=== PATIENT | male | born 1950 | race Caucasian/White ===

== ENCOUNTER 2017-01-20 22:45 | Emergency (ER) | payer MEDICARE ==
[2017-01-21] MEDS ORDERED: LIDOCAINE 1% INJ-PF (10 MG/ML) 30 ML SDV INJ ONE (00:07)
--- NOTE | 2017-01-21 00:07 | ER Document Report ---
ED Wound - General Mode of Arrival: Ambulatory Information source: Patient TRAVEL OUTSIDE OF THE [place] IN LAST 30 DAYS: No - HPI Patient complains to provider of: Laceration Occurred: This evening Onset/Duration: Sudden Context: Injury Associated Symptoms: Other - see notes above - General Chief Complaint: L little toe injury Stated Complaint: TOE INJURY Time Seen by Provider: 01/20/17 23:56 Notes: 66-year-old male with history of diabetes, hypertension, hyperlipidemia, and on warfarin presents to the ED complaining of a wound to the left small toe that occurred just prior to arrival. Patient states that he was walking down stairs without shoes when he misstepped and proceeded to injure his small left toe. Patient states that he had his INR checked 2 weeks ago which was a 2.1. (ANDERSON RUSH) - Related Data Allergies/Adverse Reactions: No Known Allergies Allergy (Unverified 01/21/17 02:40) Past Medical History - General Information source: Patient - Social History Smoking Status: Unknown if Ever Smoked Family History: Reviewed & Not Pertinent - Past Medical History Cardiac Medical History: Reports: Hx Hypercholesterolemia, Hx Hypertension Endocrine Medical History: Reports: Hx Diabetes Mellitus Type 2 Renal/ Medical History: Denies: Hx Peritoneal Dialysis Review of Systems - Review of Systems Constitutional: No symptoms reported EENT: No symptoms reported Cardiovascular: No symptoms reported Respiratory: No symptoms reported Gastrointestinal: No symptoms reported Genitourinary: No symptoms reported Male Genitourinary: No symptoms reported Musculoskeletal: See HPI, Other - wound to the left small toe Skin: No symptoms reported Hematologic/Lymphatic: No symptoms reported Neurological/Psychological: No symptoms reported -: Yes All other systems reviewed and negative Physical Exam - General General appearance: Alert In distress: None - HEENT Head: Normocephalic, Atraumatic Eyes: Normal Extraocular movements intact: Yes Pupils: PERRL - Respiratory Respiratory status: No respiratory distress Breath sounds: Normal - Cardiovascular Rhythm: Regular Heart sounds: Normal auscultation - Abdominal Inspection: Normal Distension: No distension Tenderness: Nontender - Back Back: Normal - Extremities General upper extremity: Normal inspection, Normal ROM General lower extremity: Normal ROM. No: Normal inspection - see foot exam Foot: Laceration - laceration at the base of the left 5th toe in a circular fashion approximately 2.0 cm.. No: Normal - Neurological Neuro grossly intact: Yes Cognition: Normal Orientation: AAOx4 Efra Coma Scale Eye Opening: Spontaneous Efra Coma Scale Verbal: Oriented Efra Coma Scale Motor: Obeys Commands Ashby Coma Scale Total: 15 Speech: Normal - Psychological Associated symptoms: Normal affect, Normal mood - Skin Skin Temperature: Warm Skin Moisture: Dry Skin Color: Normal Procedures - Laceration/Wound Repair Left Toe 5th digit Time completed: 01:05 Wound length (cm): 2 Wound's Depth, Shape: Linear Laceration pre-procedure: Sterile drapes applied Anesthetic type: 1% Lidocaine Wound Repaired With: Sutures Suture Size/Type: 4:0, Nylon Number of Sutures: 12 Post-procedure wound care: Other - post-op shoe Complications: No Discharge - Discharge Clinical Impression: open fracture with laceration phalanyx Condition: Stable Disposition: HOME, SELF-CARE Instructions: Laceration Care ([facility]), Oral Narcotic Medication ([facility]) Additional Instructions: Laceration Care Your laceration has been sutured to keep the skin edges aligned during healing. The time of suture removal depends on the nature and location of your cut. Please follow the care instructions the doctor has outlined for you and return for further care, according to the schedule you've been given. Keep the wound and dressing clean. Unless you were told otherwise, you may shower daily, blotting the wound dry with a clean, unused towel. At other times, If the dressing gets wet or blood soaked, remove it and blot the wound dry, then reapply a new dressing. Unless you were instructed otherwise, dressings should be changed at least daily. If any signs of infection occur (swelling, redness, increasing tenderness, red streaks, tender lumps in the armpit or groin above the laceration, or fever) , see the doctor immediately. Fractured Toe You have fractured your toe. Although this fracture doesn't need a cast or splint, emergency evaluation was needed to assess the straightness of the bones and joints. Reduction ("setting") is necessary for toe fractures which are crooked or twisted. A toe fracture will heal in about three weeks. Usually, the fractured toe is taped to the next toe. The second toe acts as a moving splint to protect the broken one. Ice and elevation help during the first 48 hours. You may need crutches at first if walking is painful. When you begin walking, be careful NOT to do things that hurt. If weight bearing is not comfortable within a few days, you may require a special shoe, walking boot, or cast. Call the doctor or return at once if severe swelling, severe pain, or numbness develop in the toe, or if you suspect you may have re-injured it. Because you are from out of town and here for an additional week want you to recheck in the emergency department in 2 days for the wound given the fact that your diabetic. And then when you go home he will have the stitches removed in 7 -10 days. Return for increased worsening or new symptoms. Prescriptions: Cephalexin Monohydrate [Keflex 500 mg Capsule] 500 mg PO QID #28 capsule Hydrocodone/Acetaminophen [Parnell 5-325 Tablet] 1 each PO TID #12 tablet Scribe Attestation: 01/21/17 01:35 I personally performed the services described in the documentation reviewed the documentation recorded by my scribe in my presence and it accurately and completely records my words and actions (MADHAV HAGEN) Scribe Documentation - Scribe Written by Beatriz:: Beatriz Szymanski, 01/21/2017 0056 acting as scribe for :: Jorje
--- NOTE | 2017-01-21 00:34 | RADIOLOGY REPORT (SQ) ---
EXAM DESCRIPTION: TOE LEFT COMPLETED DATE/TIME: 01/20/2017 11:47 pm REASON FOR STUDY: pain s/p injury COMPARISON: None. NUMBER OF VIEWS: Two views. TECHNIQUE: AP and lateral images acquired of the left fifth toe. LIMITATIONS: None. FINDINGS: MINERALIZATION: Normal. BONES: Complete transverse, curvilinear fracture of the left 5th proximal phalanx, at the proximal di aphysis, without significant displacement. Mild swelling. No evidence of significant healing. JOINTS: No effusions. SOFT TISSUES: As above. OTHER: No other significant finding. IMPRESSION: Fracture of the left 5th proximal phalanx. COMMENT: SITE OF TRAUMA/COMPLAINT MARKED/STAMP COMPLETED: YES. TECHNICAL DOCUMENTATION: JOB ID: [id number] [employer]- All Rights Reserved
[2017-01-21] MEDS ORDERED: CEPHALEXIN 500 MG CAPSULE PO ONE (00:46)
[2017-01-21] MEDS ORDERED: HYDROCODONE/ACETAMINOPHEN 5-325 MG TABLET PO ONE (00:47)
[2017-01-21] MEDS ORDERED: HYDROCODONE/ACETAMINOPHEN 5-325 MG 6 TAB/DSPK PO PRN (01:38)
[2017-01-21 02:42] VITALS: BP 165/104
== END 2017-01-21 02:25 | disposition home or self-care (01) ==
LOC: ER 22:45
PROC: 0HQNXZZ Repair Left Foot Skin, External Approach (ICD-10-PCS; principal; 2017-01-20)
DX: S92.512B Displaced fracture of proximal phalanx of left lesser toe(s), initial encounter for open fracture (principal); X58.XXXA Exposure to other specified factors, initial encounter; Y92.009 Unspecified place in unspecified non-institutional (private) residence as the place of occurrence of the external cause; I10 Essential (primary) hypertension; E11.9 Type 2 diabetes mellitus without complications
CPT/HCPCS: 12001; 99283; 73660; A9270 ×3

== ENCOUNTER 2017-01-23 07:57 | Emergency (ER) | payer MEDICARE ==
[2017-01-23 08:07] VITALS: BP 163/78
--- NOTE | 2017-01-23 08:39 | ER Document Report ---
ED General - General Information source: Patient TRAVEL OUTSIDE OF THE [place] IN LAST 30 DAYS: No - HPI Patient complains to provider of: Wound Recheck Onset: Other - Injury occurred 01/21/2017 Associated symptoms: None Recently seen / treated by doctor: Yes - 01/21/2017 - General Chief Complaint: Wound Recheck Stated Complaint: STITCH RECHECK Time Seen by Provider: 01/23/17 08:18 Notes: Patient is a 67-year-old male presenting to the emergency department for a wound recheck. Patient was seen here 2 days ago after he injured his left fifth toe walking down the stairs. Patient ended up with a transverse fracture to the proximal phalanx of the left 5th toe, and also had sutures placed. Patient states that it seems to be doing well, but he requests a larger boot. (CRISTHIAN GILMORE) - Related Data Allergies/Adverse Reactions: No Known Allergies Allergy (Verified 01/23/17 08:05) Past Medical History - General Information source: Patient, [facility] Records - Social History Smoking Status: Smoker,Current Status Unk Family History: Reviewed & Not Pertinent Patient has suicidal ideation: No Patient has homicidal ideation: No - Past Medical History Cardiac Medical History: Reports: Hx Atrial Fibrillation - coumadin, Hx Hypercholesterolemia, Hx Hypertension Endocrine Medical History: Reports: Hx Diabetes Mellitus Type 2 Traumatic Medical History: Reports: Hx Fractures - Transverse fracture of the left proximal phalanx of the fifth toe - Immunizations Hx Diphtheria, Pertussis, Tetanus Vaccination: Yes Review of Systems - Review of Systems Constitutional: No symptoms reported EENT: No symptoms reported Cardiovascular: No symptoms reported Respiratory: No symptoms reported Gastrointestinal: No symptoms reported Genitourinary: No symptoms reported Male Genitourinary: No symptoms reported Musculoskeletal: See HPI, Other - Fracture/wound recheck left 5th toe Skin: No symptoms reported Hematologic/Lymphatic: No symptoms reported Neurological/Psychological: No symptoms reported -: Yes All other systems reviewed and negative Physical Exam - Vital signs Interpretation: Normal - General General appearance: Appears well, Alert - HEENT Head: Normocephalic, Atraumatic Eyes: Normal Pupils: PERRL - Respiratory Respiratory status: No respiratory distress Chest status: Nontender - Cardiovascular Rhythm: Regular - Abdominal Inspection: Normal, Morbidly Obese Distension: No distension Bowel sounds: Normal Tenderness: Nontender Organomegaly: No organomegaly - Back Back: Normal, Nontender - Extremities General upper extremity: Normal inspection, Nontender Foot: Other - Wound with sutures between left 4th and 5th toes. It was dressed without any gauze between the toes, so skin is white with macerated appearance. Dorsal plantar and lateral aspect of the toe the skin appears normal. - Neurological Neuro grossly intact: Yes Cognition: Normal Orientation: AAOx4 Ettrick Coma Scale Eye Opening: Spontaneous Efra Coma Scale Verbal: Oriented Efra Coma Scale Motor: Obeys Commands Ettrick Coma Scale Total: 15 Speech: Normal Motor strength normal: LUE, RUE, LLE, RLE Sensory: Normal - Psychological Associated symptoms: Normal affect, Normal mood - Skin Skin Temperature: Warm Skin Moisture: Dry Skin Color: Other - See foot exam - Vital signs Vitals: Temp Pulse Resp BP Pulse Ox 97.8 F 94 20 163/78 H 96 01/23/17 08:06 01/23/17 08:06 01/23/17 08:06 01/23/17 08:06 01/23/17 08:06 Discharge - Discharge Clinical Impression: Visit for wound check Disposition: HOME, SELF-CARE Additional Instructions: Clean the wound and change the gauze between the toes at least twice daily. Elevate your foot and limit walking as much as possible. Continue taking the antibiotics. Follow-up with your doctor for suture removal when you return home. RETURN TO THE EMERGENCY ROOM IF ANY NEW OR WORSENING SYMPTOMS. Daveyibe Attestation: 01/23/17 08:47 I personally performed the services described in the documentation, reviewed and edited the documentation which was dictated to the scribe in my presence, and it accurately records my words and actions. (JELANI NICHOLE) Scribe Documentation - Scribe Written by Beatriz:: Beatriz Foster, 01/23/2017 0839 acting as scribe for :: Ab
== END 2017-01-23 08:50 | disposition home or self-care (01) ==
LOC: ER 07:57
DX: S92.512D Displaced fracture of proximal phalanx of left lesser toe(s), subsequent encounter for fracture with routine healing (principal); S91.302D Unspecified open wound, left foot, subsequent encounter; X58.XXXD Exposure to other specified factors, subsequent encounter; E11.9 Type 2 diabetes mellitus without complications; I10 Essential (primary) hypertension
CPT/HCPCS: 99282